=== PATIENT | female | born 1970 | race Caucasian/White ===

== ENCOUNTER 2018-06-24 07:55 | Emergency (ER) | payer OTHER ==
[~2018-06-24] VITALS: Ht 172.7 cm; Wt 84.8 kg
[~2018-06-24 07:55] MED LIST: ALPR0.25 PO; ALPR1TAB2 PO; AMIT10TA6 PO; CALC1TAB76 PO; CYCL10TA9 PO; DIME25TA PO; DIPH50CA33 PO; FAMO10TA43 PO; GFN600TCR PO; HYDR-3062 PO; HYDR25CA PO; LORA10CA PO; LVT.15T PO; MAGN400C PO; MELO-198 PO; METH4TAB PO; METH500T PO; OMEG-9 PO; OMEP20TA2 PO
--- OUTSIDE RECORDS SUMMARY | 2018-06-24 08:00 | XMS REPORT | Continuity of Care Document ---
Author Author [facility] Organization [facility] Address Unknown Phone Unavailable Allergies There is no data. Medications There is no data. Problems There is no data. Procedures There is no data. Results There is no data. Encounters ACCT No. Visit Date/Time Discharge Status Pt. Type Provider Facility Loc./Unit Complaint [id number] 03/10/2014 09:02:00 03/10/2014 11:35:00 DIS Emergency
--- NOTE | 2018-06-24 08:26 | ED Abdominal Pain ---
General Stated Complaint: LOWER QUADRANT PAIN,L SIDE PAIN Source of Information: Patient Exam Limitations: No Limitations History of Present Illness Date Seen by Provider: Jun 24, 2018 Time Seen by Provider: 08:11 Initial Comments the patient presents to the ER by private conveyance with a chief complaint of left lower quadrant pain and some left flank pain. She has no history of kidney stones. Soebbing no dysuria or hematuria. She says the pain is waxing and waning sometimes crampy and right now 5 out of 10 presently. She says been starting 4 days ago on and morning after getting off work she went to [facility] where they did a x-ray told her she had a lot of constipation and so she got some MiraLAX and cleaned out and still did not change her pain. [facility] did not have ultrasound to do her pelvic ultrasound but she wanted. They did lab work which was all unremarkable. They told her her vital signs are okay. She did not have any other imaging studies done that day. She does have a history 15 years ago of having some ovarian cysts as well as endometriosis. She has had a laparoscopic surgery done and [employer] [facility] to discover the endometriosis as well as she's had her gallbladder out. She's having no nausea no radiation of pain and no problems with bowel movements. She's never had a colonoscopy or history of diverticulitis , diarrhea etc. She does not smoke drink or do drugs. She says she did have some hydrocodone that she uses about 20 tablets a month for her chronic back pain. She's been voluntarily losing weight and lost 20 pounds over the last couple months to try and help with her back pain. She says she tried one of her Martin 5 x 3 25's last night because the pain was getting so severe and she stated did nothing for her pain. She has used Aleve a couple days ago and did not feel it helped. She received some Toradol in the ER and felt that it did take the edge off but did not completely help her pain. She follows with Dr. Durand and he has recent set her up for a mammogram but no Pap smear. She does not member the last time she had a Pap smear. She has a lot of stress at home with a foster child moving back and she is not seen in the last 4 years. Allergies and Home Medications Allergies Coded Allergies: Penicillins (Unverified Allergy, Unknown, 03/10/14) Sulfa (Sulfonamide Antibiotics) (Unverified Allergy, Unknown, 03/10/14) adhesive (Unverified Allergy, Unknown, 03/10/14) piperacillin (Unverified Allergy, Unknown, 03/10/14) tazobactam (Unverified Allergy, Unknown, 03/10/14) Home Medications Alprazolam 1 Mg Tablet, 1 MG PO HS, (Reported) Alprazolam 0.25 Mg Tablet, 0.25 MG PO Q4H, (Reported) Amitriptyline Hcl 10 Mg Tablet, 2 EACH PO HS, (Reported) Calcium Carbonate/Vitamin D2 1 Tab Tablet, 1 TAB PO DAILY, (Reported) Cyclobenzaprine Hcl 10 Mg Tablet, 1 EACH PO Q8H, (Reported) Dimenhydrinate 25 Mg Tab.chew, 25 MG PO HS, (Reported) Diphenhydramine Hcl 50 Mg Tablet, 1 EACH PO HS PRN, (Reported) Famotidine 10 Mg Tablet, 10 MG PO BID, (Reported) Guaifenesin 600 Mg Tab, 1,200 MG PO HS, (Reported) Hydrocodone Bit/Acetaminophen 1 Each Tablet, 1 EACH PO Q4H, (Reported) Hydroxyzine Pamoate 25 Mg Capsule, 25 MG PO Q6H, (Reported) Levothyroxine Sodium 150 Mcg Tablet, 1 EACH PO DAILY, (Reported) Loratadine 10 Mg Capsule, 10 MG PO HS, (Reported) Magnesium Oxide 400 Mg Capsule, 800 MG PO HS, (Reported) Meloxicam 7.5 Mg Tablet, 1 EACH PO DAILY, (Reported) Methocarbamol 500 Mg Tablet, 500 MG PO QID PRN for MUSCLE SPASMS FOR MUSCLE SPASMS Prescribed by: HOA ORDONEZ on 03/10/14 1132 Methylprednisolone 4 Mg/Dose-Pack Tab.ds.pk, 0 PO UD Prescribed by: HOA ORDONEZ on 03/10/14 1132 [place]-3/Dha/Epa/Fish Oil 1 Each Capsule.dr, 1 EACH PO DAILY, (Reported) Omeprazole 20 Mg Tablet.dr, 20 MG PO DAILY, (Reported) Patient Home Medication List Home Medication List Reviewed: Yes Review of Systems Review of Systems Constitutional: No chills, No diaphoresis EENTM: No Blurred Vision, No Double Vision Respiratory: Denies Cough, Denies Shortness of Air Cardiovascular: Denies Chest Pain, Denies Edema Gastrointestinal: See HPI; Denies Abdomen Distended; Abdominal Pain; Denies Constipated, Denies Diarrhea, Denies Nausea; Poor Appetite; Denies Vomiting Genitourinary: Denies Burning, Denies Discharge Musculoskeletal: No back pain, No joint pain Skin: No pruritus, No rash Psychiatric/Neurological: Denies Headache, Denies Numbness Past Kjrcbwt-Bssgwg-Jnfknj Hx Patient Social History Alcohol Use: Denies Use Smoking Status: Never a Smoker Recent Foreign Travel: No Contact w/Someone Who Travel: No Past Medical History Reproductive Disorders: Yes (endometriiosis) Gastroesophageal Reflux, Hiatal Hernia Degenerate Disk Disease Hypothyroidsim Anxiety, Depression Physical Exam Vital Signs Vital Signs - First Documented 06/24/18 07:58 Temp 96.9 Pulse 90 Resp 18 B/P (MAP) 154/100 (118) Pulse Ox 100 O2 Delivery Room Air Capillary Refill : Height/Weight/BMI Height: 5'7" Weight: 188lbs. oz. 85.377546zo; BMI Method:Stated General Appearance: WD/WN, mild distress HEENT: PERRL/EOMI, pharynx normal Neck: non-tender, normal inspection Respiratory: lungs clear, normal breath sounds, no respiratory distress, no accessory muscle use Cardiovascular: normal peripheral pulses, regular rate, rhythm Gastrointestinal: normal bowel sounds (fairly active), soft; No distended, No guarding, No rebound; tenderness (mild left lower quadrant tenderness), other ( negative for Rovsing's, mesenteric signs, psoas signs.) Extremities: normal range of motion, normal capillary refill Back: CVA tenderness (L) (very mild tenderness to percussion) Neurologic/Psychiatric: alert, normal mood/affect, oriented x 3 Skin: normal color, warm/dry Progress/Results/Core Measures Results/Orders Lab Results Laboratory Tests Test 06/24/18 08:22 06/24/18 08:45 Range/Units Urine Color YELLOW Urine Clarity CLEAR Urine pH 6 5-9 Urine Specific Roy 1.015 L 1.016-1.022 Urine Protein NEGATIVE NEGATIVE Urine Glucose (UA) NEGATIVE NEGATIVE Urine Ketones NEGATIVE NEGATIVE Urine Nitrite NEGATIVE NEGATIVE Urine Bilirubin NEGATIVE NEGATIVE Urine Urobilinogen NORMAL NORMAL MG/DL Urine Leukocyte Esterase NEGATIVE NEGATIVE Urine RBC (Auto) NEGATIVE NEGATIVE Urine RBC NONE /HPF Urine WBC NONE /HPF Urine Squamous Epithelial Cells RARE /HPF Urine Crystals NONE /LPF Urine Bacteria NEGATIVE /HPF Urine Casts NONE /LPF Urine Mucus NEGATIVE /LPF Urine Culture Indicated NO White Blood Count 4.5 4.3-11.0 10^3/uL Red Blood Count 4.15 L 4.35-5.85 10^6/uL Hemoglobin 13.7 11.5-16.0 G/DL Hematocrit 39 35-52 % Mean Corpuscular Volume 93 80-99 FL Mean Corpuscular Hemoglobin 33 25-34 PG Mean Corpuscular Hemoglobin Concent 36 32-36 G/DL Red Cell Distribution Width 11.6 10.0-14.5 % Platelet Count 260 130-400 10^3/uL Mean Platelet Volume 8.5 7.4-10.4 FL Neutrophils (%) (Auto) 41 L 42-75 % Lymphocytes (%) (Auto) 45 H 12-44 % Monocytes (%) (Auto) 11 0-12 % Eosinophils (%) (Auto) 3 0-10 % Basophils (%) (Auto) 0 0-10 % Neutrophils # (Auto) 1.8 1.8-7.8 X 10^3 Lymphocytes # (Auto) 2.0 1.0-4.0 X 10^3 Monocytes # (Auto) 0.5 0.0-1.0 X 10^3 Eosinophils # (Auto) 0.2 0.0-0.3 10^3/uL Basophils # (Auto) 0.0 0.0-0.1 10^3/uL Sodium Level 137 135-145 MMOL/L Potassium Level 4.1 3.6-5.0 MMOL/L Chloride Level 102 98-107 MMOL/L Carbon Dioxide Level 23 21-32 MMOL/L Anion Gap 12 5-14 MMOL/L Blood Urea Nitrogen 18 7-18 MG/DL Creatinine 1.03 0.60-1.30 MG/DL Estimat Glomerular Filtration Rate 57 BUN/Creatinine Ratio 17 Glucose Level 93 70-105 MG/DL Calcium Level 9.9 8.5-10.1 MG/DL Corrected Calcium 9.7 8.5-10.1 MG/DL Total Bilirubin 0.6 0.1-1.0 MG/DL Aspartate Amino Transf (AST/SGOT) 29 5-34 U/L Alanine Aminotransferase (ALT/SGPT) 27 0-55 U/L Alkaline Phosphatase 40 40-136 U/L Total Protein 7.4 6.4-8.2 GM/DL Albumin 4.3 3.2-4.5 GM/DL My Orders Orders - KISHORE SORIANO Ua Culture If Indicated (06/24/18 08:19) Urine Bedside (06/24/18 08:19) Ketorolac Injection (Toradol Injection) (06/24/18 08:30) Cbc With Automated Diff (06/24/18 08:33) Comprehensive Metabolic Panel (06/24/18 08:33) Ct Abd/Pelvis Wo(Kidney Stone) (06/24/18 08:33) Medications Given in ED Current Medications Medications Dose Ordered Sig/Edward Route Start Time Stop Time Status Last Admin Dose Admin Ketorolac Tromethamine 30 mg ONCE ONCE IM 06/24/18 08:30 06/24/18 08:31 DC 06/24/18 08:44 30 MG Vital Signs/I&O 06/24/18 07:58 Temp 96.9 Pulse 90 Resp 18 B/P (MAP) 154/100 (118) Pulse Ox 100 O2 Delivery Room Air Progress Progress Note #1: Time: 08:26 Progress Note We've discussed with her at great length appropriate workup for her symptoms. Her vital signs are unremarkable at this time. Her blood pressure is mildly elevated which is probably due to her pain. We have offered her Toradol and she has accepted this. She's having no nausea. No fevers and we reviewed the screen shots on her phone of her labs from , 4 days ago and her CBC CMP lipase were all completely normal. We have offered to repeat labs and urinalysis. She says she would really just want an ultrasound but since we do not have ultrasound available this weekend we have directed her to talk to Dr. Durand tomorrow morning to get an outpatient ultrasound set up. She has decided that she would like to have a urinalysis done and some pain medicine but she already has hydrocodone at home and does not feel it helped so were going to encourage her to use Naprosyn instead. She is declining any laboratory workup at this time. We talked about possibly doing a CT scan for the remote chance of a kidney stone but we do not feel it very likely despite her having some left flank tenderness to percussion it is very mild. The patient is now asking for some blood work and for serial examination and a CT without contrast to rule out kidney stone. Progress Note #2: Time: 10:02 Progress Note Patient reports she does have a tampon in. Last menstrual period started Monday , 6 days ago and is just very light today. Her pain is almost completely gone now after the Toradol shot. She would like to follow up with Dr. Durand outpatient to have an ultrasound done even though it is available today and was offered to her. Diagnostic Imaging Diagonstic Imaging: CT (without contrast) Plain Films/CT/US/NM/MRI: abdomen, pelvis Comments NAME: CADE STANLEY [facility] REC#: [id number] PT STATUS: REG ER : 1970 PHYSICIAN: KISHORE SORIANO MD ADMIT DATE: 06/24/18/ER Draft Date of Exam:06/24/18 CT ABD/PELVIS WO(KIDNEY STONE) PROCEDURE: CT urinary tract, rule out kidney stone. TECHNIQUE: Multiple contiguous axial images were obtained through the abdomen and pelvis without the use of intravenous contrast. INDICATION: Left lower quadrant pain. FINDINGS: Heart size is normal. Lung bases are clear. The liver is normal in size without focal lesions. Gallbladder surgically absent. Spleen is normal. Pancreas and adrenal glands are unremarkable. Kidneys are normal in appearance. Aorta is nonaneurysmal. Bowel gas pattern is nonspecific. Bladder is normal. Uterus and adnexa are grossly unremarkable. No pelvic mass or adenopathy. No ascites. No free air. No focal inflammatory changes. The osseous structures are unremarkable. The appendix is normal in appearance. IMPRESSION: Unremarkable noncontrast CT abdomen and pelvis. Dictated on workstation # [id number] Dict: 06/24/18927 Trans: 06/24/18 09 CVB [id number] Interpreted by: CYRUS MCINTYRE MD Electronically signed by: Reviewed: Reviewed by Me Departure Impression Primary Impression: Right lower quadrant abdominal pain Disposition: 01 HOME, SELF-CARE Condition: Improved Departure-Patient Inst. Decision time for Depature: 10:04 Referrals: NO,LOCAL PHYSICIAN (PCP/Family) Primary Care Physician Patient Instructions: Acute Abdomen (Belly Pain), Adult (DC) Add. Discharge Instructions: Tomorrow morning follow up with your primary DrLucinda Durand and get set up for an ultrasound outpatient. Use Naprosyn 2 capsules twice a day as needed for pain in addition to Tylenol 1000 mg every 8 hours. Heating pads and splinting of the side will also be helpful. Work/School Note: Work Release Form Date Seen in the Emergency Department: Jun 24, 2018 Return to Work: Jun 26, 2018 Restrictions: No Restrictions Copy Copies To 1: SHANNON DURAND MD, TITUS J Jun 24, 2018 08:26
[2018-06-24 08:30] LABS: BILIRUBIN,URINE NEGATIVE (NEGATIVE); CLARITY,URINE CLEAR; COLOR,URINE YELLOW; GLUCOSE, URINE (UA) NEGATIVE (NEGATIVE); KETONES,URINE NEGATIVE (NEGATIVE); LEUKOCYTE ESTERASE ,URINE NEGATIVE (NEGATIVE); NITRITE,URINE NEGATIVE (NEGATIVE); PH,URINE 6 (5-9); PROTEIN,URINE NEGATIVE (NEGATIVE); UROBILINOGEN,URINE NORMAL (NORMAL)
[2018-06-24] MEDS ORDERED: KETOROLAC 30 MG/ML VIAL IM ONE (08:30)
[2018-06-24 08:44] LABS: BACTERIA,URINE NEGATIVE /HPF; SQUAMOUS EPITHELIAL CELL,UR RARE /HPF
[2018-06-24 09:01] LABS: BASOPHILS % (AUTO) 0 % (0-10); EOSINOPHILS # (AUTO) 0.2 10^3/uL (0.0-0.3); EOSINOPHILS % (AUTO) 3 % (0-10); HEMATOCRIT 39 % (35-52); HEMOGLOBIN 13.7 G/DL (11.5-16.0); LYMPHOCYTES % (AUTO) 45 % (12-44); MEAN CORPUSCULAR HEMOGLOBIN 33 PG (25-34); MEAN CORPUSCULAR HGB CONC 36 G/DL (32-36); MEAN CORPUSCULAR VOLUME 93 FL (80-99); MEAN PLATELET VOLUME 8.5 FL (7.4-10.4); MONOCYTES # (AUTO) 0.5 X 10^3 (0.0-1.0); MONOCYTES % (AUTO) 11 % (0-12); NEUTROPHILS # (AUTO) 1.8 X 10^3 (1.8-7.8); NEUTROPHILS % (AUTO) 41 % (42-75); PLATELET COUNT 260 10^3/uL (130-400); RED BLOOD COUNT 4.15 10^6/uL (4.35-5.85); RED CELL DISTRIBUTION WIDTH 11.6 % (10.0-14.5); WHITE BLOOD COUNT 4.5 10^3/uL (4.3-11.0)
[2018-06-24 09:22] LABS: ALBUMIN 4.3 GM/DL (3.2-4.5); BILIRUBIN,TOTAL 0.6 MG/DL (0.1-1.0); CALCIUM 9.9 MG/DL (8.5-10.1); CREATININE SERUM 1.03 MG/DL (0.60-1.30); POTASSIUM 4.1 MMOL/L (3.6-5.0); TOTAL PROTEIN 7.4 GM/DL (6.4-8.2)
--- NOTE | 2018-06-24 09:31 | Diagnostic Imaging Report ---
PROCEDURE: CT urinary tract, rule out kidney stone. TECHNIQUE: Multiple contiguous axial images were obtained through the abdomen and pelvis without the use of intravenous contrast. INDICATION: Left lower quadrant pain. FINDINGS: Heart size is normal. Lung bases are clear. The liver is normal in size without focal lesions. Gallbladder surgically absent. Spleen is normal. Pancreas and adrenal glands are unremarkable. Kidneys are normal in appearance. Aorta is nonaneurysmal. Bowel gas pattern is nonspecific. Bladder is normal. Uterus and adnexa are grossly unremarkable. No pelvic mass or adenopathy. No ascites. No free air. No focal inflammatory changes. The osseous structures are unremarkable. The appendix is normal in appearance. IMPRESSION: Unremarkable noncontrast CT abdomen and pelvis. Dictated by: Dictated on workstation # [id number]
[2018-06-24 10:20] VITALS: BP 146/103
== END 2018-06-24 10:20 | disposition home or self-care (01) ==
LOC: EDUNIT# 07:55 → ER 07:56
DX: R10.31 Right lower quadrant pain (principal); K21.9 Gastro-esophageal reflux disease without esophagitis; E03.9 Hypothyroidism, unspecified; F41.9 Anxiety disorder, unspecified; F32.9 Major depressive disorder, single episode, unspecified; Z88.0 Allergy status to penicillin; Z88.2 Allergy status to sulfonamides; Z91.048 Other nonmedicinal substance allergy status; Z88.8 Allergy status to other drugs, medicaments and biological substances; Z87.448 Personal history of other diseases of urinary system; Z87.19 Personal history of other diseases of the digestive system; Z79.52 Long term (current) use of systemic steroids
CPT/HCPCS: 36415; 74176; 80053; 81000; 84703; 85025

== ENCOUNTER → 2019-05-03 | Outpatient (CLI) | payer OTHER ==
--- NOTE | 2019-05-03 17:01 | Diagnostic Imaging Report ---
CLINICAL HISTORY: Back pain for 2 days. History of herniated disc. COMPARISON: CT lumbar spine on 03/10/2014 TECHNIQUE: 3 views of the lumbar spine. FINDINGS: No acute fracture or dislocation is seen in the lumbar spine. Vertebral body heights and disc spaces are well-maintained. No focal osseous lesions. Mild degenerative changes are present at the L5-S1 level. Prevertebral soft tissues are unremarkable. IMPRESSION: No acute fracture or dislocation in the lumbar spine. Dictated by: Dictated on workstation # [id number]
== END ==
LOC: RAD FS 16:31
PROVIDERS: ATTEND Nurse Practitioner Family
DX: M54.9 Dorsalgia, unspecified (principal); Z87.39 Personal history of other diseases of the musculoskeletal system and connective tissue
CPT/HCPCS: 72100